=== PATIENT | male | born 1985 | race Two or more races ===

== ENCOUNTER 2020-01-07 12:13 | Emergency (ER) | payer MEDICAID ==
[~2020-01-07] VITALS: Ht 160 cm; Wt 62.6 kg
--- NOTE | 2020-01-07 12:25 | NUR ---
SEEN BY DR GOLD, WAITING FOR FURTHER ORDERS
--- NOTE | 2020-01-07 12:30 | NUR ---
RADIOLOGY AT BEDSIDE FOR R SHOULDER XRAY.
[2020-01-07] MEDS ORDERED: IBUPROFEN 600 MG TABLET PO ONE (13:00)
--- NOTE | 2020-01-07 13:04 | NUR ---
PT STATES HE IS NO LONGER IN PAIN. ABLE TO MOVE AFFECTED EXTREMITY. REFUSED ORDERED IBUPROFEN. DISCHARGE HOME IN STABLE CONDITION.
[2020-01-07 13:23] VITALS: BP 132/75
== END 2020-01-07 13:24 | disposition home or self-care (01) ==
LOC: ER 12:17
DX: S43.014A Anterior dislocation of right humerus, initial encounter (principal); X58.XXXA Exposure to other specified factors, initial encounter; Y93.89 Activity, other specified; Y92.89 Other specified places as the place of occurrence of the external cause; Y99.0 Civilian activity done for income or pay
CPT/HCPCS: 73030-TC